=== PATIENT | male | born 1950 | race Caucasian/White ===

== ENCOUNTER 2021-03-28 04:35 | Day surgery (SDC) | payer OTHER ==
[2021-03-26 11:33] VITALS: BMI 27.2
[2021-03-28 10:23] VITALS: TEMP 97.3
[2021-03-28 10:37] VITALS: PULSE 57
[2021-03-28 11:05] VITALS: BP 141/73
== END 2021-03-28 11:15 | disposition home or self-care (01) ==
LOC: JASU-ENDO 04:35
PROVIDERS: ATTEND Internal Medicine Gastroenterology
PROC: 0DJD8ZZ Inspection of Lower Intestinal Tract, Via Natural or Artificial Opening Endoscopic (ICD-10-PCS; principal; 2021-03-28 10:00)
DX: Z12.11 Encounter for screening for malignant neoplasm of colon (principal); K57.30 Diverticulosis of large intestine without perforation or abscess without bleeding; Z85.040 Personal history of malignant carcinoid tumor of rectum